=== PATIENT | male | born 1995 | race African-American/Black ===

== ENCOUNTER 2021-10-06 18:25 | Emergency (ER) | payer SELFPAY ==
[~2021-10-06] VITALS: Ht 180.3 cm; Wt 84.0 kg
[2021-10-06 20:58] LABS: BASOPHILS % 0.6 % (0.0-2.0); EOSINOPHILS % 2.4 % (0.0-5.0); HEMATOCRIT. 40.1 % (42.0-52.0); HEMOGLOBIN. 13.7 g/dL (14.0-18.0); LYMPHOCYTES % 18.9 % (20.0-50.0); MEAN CORPUSCULAR VOLUME 85.2 fL (80.0-94.0); MEAN PLATELET VOLUME 6.2 fl (7.4-10.4); MONOCYTES % 5.8 % (2.0-8.0); NEUTROPHILS % 72.3 % (40.0-76.0); PLATELET 321 x1000/uL (130-400); RED BLOOD CELL COUNT 4.71 mill/uL (4.7-6.1); RED CELL DISTRIBUTION WIDTH 12.9 % (11.6-14.6)
[2021-10-06 21:01] LABS: CHLORIDE 105 mEq/L (98-107)
[2021-10-06 21:04] LABS: ETHANOL BLOOD < 10 mg/dL
[2021-10-06 23:11] LABS: *AMPHETAMINES SCREEN URINE PRESUMTIVE POSITIVE (NEGATIVE); *BARBITURATES SCREEN URINE NEGATIVE (NEGATIVE); *BENZODIAZEPINES SCREEN URINE NEGATIVE (NEGATIVE); *COCAINE SCREEN URINE NEGATIVE (NEGATIVE); CANNABINOID URINE SCREEN PRESUMTIVE POSITIVE (NEGATIVE); METHADONE URINE SCREEN NEGATIVE (NEGATIVE); OPIATES URINE SCREEN NEGATIVE (NEGATIVE); PHENCYCLIDINE URINE SCREEN NEGATIVE (NEGATIVE)
[2021-10-07 05:32] VITALS: BP 123/76
== END 2021-10-07 05:38 | disposition home or self-care (01) ==
LOC: EDBD 18:25 → ER 18:25
DX: F43.20 Adjustment disorder, unspecified (principal)
CPT/HCPCS: 36415; 80048; 80305; 80320; 85025; 99285; G0480